=== PATIENT | male | born 1995 | race Caucasian/White ===

== ENCOUNTER 2020-06-03 01:25 | Emergency (ER) | payer SELFPAY ==
--- NOTE | 2020-06-03 02:20 | EDPHYS ---
Physician Documentation [facility] Name: Romeo Davis Age: 24 yrs Sex: Male : 1995 Arrival Date: 06/03/2020 Time: 01:28 Bed 15 Private MD: ED Physician Roderick Barton HPI: 06/03 01:56 This 24 yrs old Male presents to ER via Ambulatory with complaints of High Heart Rate. pkl 01:56 The patient presents with a history of heart racing. Onset: The symptoms/episode pkl began/occurred just prior to arrival. Associated signs and symptoms: Pertinent positives: diarrhea 2 days ago. The patient has not experienced similar symptoms in the past. Historical: - Allergies: 01:37 No Known Allergies; sg - PMHx: 01:37 None; sg - Immunization history:: Adult Immunizations up to date. - Social history:: Smoking status: Patient denies any tobacco usage or history of. ROS: 01:56 Eyes: Negative for injury, pain, redness, and discharge, ENT: Negative for injury, pkl pain, and discharge, Neck: Negative for injury, pain, and swelling. 01:56 Cardiovascular: Positive for palpitations. 01:56 Respiratory: Negative for cough, shortness of breath. 01:56 Abdomen/GI: Positive for diarrhea. 01:56 Back: Negative for acute changes. 01:56 : Negative for urinary symptoms. 01:56 MS/extremity: Negative for acute changes. 01:56 Skin: Negative for rash. 01:56 Neuro: Negative for altered mental status, loss of consciousness. Exam: 01:56 Head/Face: Normocephalic, atraumatic. Eyes: Pupils equal round and reactive to light, pkl extra-ocular motions intact. Lids and lashes normal. Conjunctiva and sclera are non-icteric and not injected. Cornea within normal limits. Periorbital areas with no swelling, redness, or edema. ENT: Nares patent. No nasal discharge, no septal abnormalities noted. Tympanic membranes are normal and external auditory canals are clear. Oropharynx with no redness, swelling, or masses, exudates, or evidence of obstruction, uvula midline. Mucous membranes moist. Neck: Trachea midline, no thyromegaly or masses palpated, and no cervical lymphadenopathy. Supple, full range of motion without nuchal rigidity, or vertebral point tenderness. No Meningismus. Chest/axilla: Normal chest wall appearance and motion. Nontender with no deformity. No lesions are appreciated. Cardiovascular: Regular rate and rhythm with a normal S1 and S2. No gallops, murmurs, or rubs. Normal PMI, no JVD. No pulse deficits. Respiratory: Lungs have equal breath sounds bilaterally, clear to auscultation and percussion. No rales, rhonchi or wheezes noted. No increased work of breathing, no retractions or nasal flaring. Abdomen/GI: Soft, non-tender, with normal bowel sounds. No distension or tympany. No guarding or rebound. No evidence of tenderness throughout. Back: No spinal tenderness. No costovertebral tenderness. Full range of motion. Skin: Warm, dry with normal turgor. Normal color with no rashes, no lesions, and no evidence of cellulitis. MS/ Extremity: Pulses equal, no cyanosis. Neurovascular intact. Full, normal range of motion. Neuro: Awake and alert, GCS 15, oriented to person, place, time, and situation. Cranial nerves II-XII grossly intact. Motor strength 5/5 in all extremities. Sensory grossly intact. Cerebellar exam normal. Normal gait. Vital Signs: 01:35 Pulse 76 MON; Resp 16; Temp 97.2; Pulse Ox 100% on R/A; sg 01:35 BP 101 / 72; sg 02:20 BP 110 / 70; Pulse 66; Resp 17; Pulse Ox 100% on R/A; Pain 0/10; sg MDM: 01:36 Patient medically screened. pkl 02:17 Data reviewed: vital signs, nurses notes. ED course: Patient does not want any tests pkl and IV fluids. Sign AMA. 12 01:55 Order name: EKG; Complete Time: 01:56 pkl Administered Medications: 02:20 Not Given (Patient Refused): NS 0.9% 1000 ml IV at 1000 ml once sg Disposition: 06/03/20 02:19 Patient has left against medical advice. Impression: Palpitations. - Patients states they are going to Home. - Condition is Stable. Follow up: Private Physician; When: 1 - 2 days; Reason: Re-evaluation by your physician. - Problem is new. - Symptoms have improved. Signatures: Dispatcher [employer] EDMS Boo Hannah RN RN Roderick Lim MD MD pkl Corrections: (The following items were deleted from the chart) 02: 02:19 06/03/2020 02:19 Patients has left against medical advice. Patient states they pkl are going to Home. Condition is Stable. Follow up: Private Physician; When: 1 - 2 days; Reason: Re-evaluation by your physician. Problem is new. Symptoms have improved. pkl 02: 01:56 CBC+H.LAB.BRZ ordered. EDMS EDMS 02:25 01:56 BASIC METABOLIC PANEL+C.LAB.BRZ ordered. EDMS EDMS 02:25 01:56 URINE DRUG SCREEN+CHEM UR.LAB.BRZ ordered. EDVA EDMS 02:25 02:20 06/03/2020 02:19 Patients has left against medical advice. Impression: sg Palpitations. Patient states they are going to Home. Condition is Stable. Follow up: Private Physician; When: 1 - 2 days; Reason: Re-evaluation by your physician. Problem is new. Symptoms have improved. pkl
--- NOTE | 2020-06-03 02:20 | ER ---
Nurse's Notes [facility] Name: Romeo Davis Age: 24 yrs Sex: Male : 1995 Arrival Date: 06/03/2020 Time: 01:28 Bed 15 Private MD: Diagnosis: Palpitations Presentation: 06/03 01:35 Chief complaint: Patient states: I feel like my heart rate is going really fast, like sg beating fast in my chest, denies N/V/D/Fever at this time. Coronavirus screen: Client denies travel out of the [place] in the last 14 days. At this time, the client does not indicate any symptoms associated with coronavirus-19. Ebola Screen: Patient negative for fever greater than or equal to 101.5 degrees Fahrenheit, and additional compatible Ebola Virus Disease symptoms Patient denies exposure to infectious person. Patient denies travel to an Ebola-affected area in the 21 days before illness onset. No symptoms or risks identified at this time. Initial Sepsis Screen: Does the patient meet any 2 criteria? No. Patient's initial sepsis screen is negative. Does the patient have a suspected source of infection? No. Patient's initial sepsis screen is negative. Risk Assessment: Do you want to hurt yourself or someone else? Patient reports no desire to harm self or others. Onset of symptoms was June 03, 2020. Care prior to arrival: None. Transition of care: patient was not received from another setting of care. 01:35 Acuity: RENAN 3 sg 01:35 Method Of Arrival: Ambulatory sg Historical: - Allergies: 01:37 No Known Allergies; sg - PMHx: 01:37 None; sg - Immunization history:: Adult Immunizations up to date. - Social history:: Smoking status: Patient denies any tobacco usage or history of. Screenin:45 Abuse screen: Denies threats or abuse. Denies injuries from another. sg Assessment: 01:45 General: Appears in no apparent distress. comfortable, well groomed, Behavior is calm, sg cooperative, quiet. Pain: Denies pain. Neuro: Level of Consciousness is awake, alert, obeys commands, Oriented to person, place, time, Speech is normal, Facial symmetry appears normal. Cardiovascular: Capillary refill is brisk in bilateral fingers Patient's skin is warm and dry. Chest pain is denied. Cardiovascular: Pulses are palpable in left radial artery. Respiratory: Airway is patent Respiratory effort is even, unlabored, Respiratory pattern is regular, symmetrical. GI: No signs and/or symptoms were reported involving the gastrointestinal system. Abdomen is flat, non-distended. : No signs and/or symptoms were reported regarding the genitourinary system. EENT: No signs and/or symptoms were reported regarding the EENT system. Derm: Skin is pink, warm \T\ dry. Musculoskeletal: Circulation, motion, and sensation intact. Range of motion: intact in all extremities. 02:25 Reassessment: Patient appears in no apparent distress at this time. Patient and/or sg family updated on plan of care and expected duration. Pain level reassessed. Patient is alert, oriented x 3, equal unlabored respirations, skin warm/dry/pink. pt requesting to notify ERP that pt to leave AMA. notified, pt given AMA instructions, AMA form signed, pt left the ED ambulatory with steady gait with his grandfather. Vital Signs: 01:35 Pulse 76 MON; Resp 16; Temp 97.2; Pulse Ox 100% on R/A; sg 01:35 BP 101 / 72; sg 02:20 BP 110 / 70; Pulse 66; Resp 17; Pulse Ox 100% on R/A; Pain 0/10; sg ED Course: 01:28 Patient arrived in ED. cl3 01:35 Arm band placed on. sg 01:36 Roderick Barton MD is Attending Physician. pkpat 01:37 Triage completed. sg 01:45 Patient has correct armband on for positive identification. Bed in low position. Call sg light in reach. child monitor on. Pulse ox on. NIBP on. Head of bed elevated. 02:25 No provider procedures requiring assistance completed. sg 02:25 Patient did not have IV access during this emergency room visit. sg Administered Medications: 02:20 Not Given (Patient Refused): NS 0.9% 1000 ml IV at 1000 ml once sg Outcome: 02:25 Patient left the ED. sg 02:25 AMA AMA form signed sg 02:25 Condition: stable 02:25 Instructed on follow up and referral plans. safety practices, Demonstrated understanding of instructions, follow-up care. Signatures: Boo Hannah RN RN sg Roderick Barton MD MD pkl [place], [place] cl3
[2020-06-08 00:18] VITALS: TEMP 97.2; O2SAT 100
== END 2020-06-03 02:25 | disposition left against medical advice (07) ==
LOC: ER 01:25
DX: R00.2 Palpitations (principal); R19.7 Diarrhea, unspecified
CPT/HCPCS: 99284